=== PATIENT | female | born 1975 | race Caucasian/White ===

== ENCOUNTER 2017-01-10 05:42 | Emergency (ER) | payer OTHER ==
[~2017-01-10] VITALS: Ht 162.5 cm; Wt 74.4 kg
[2017-01-10] MEDS ORDERED: NEURONTIN100 MG PO (05:47)
[2017-01-10] MEDS ORDERED: OSELTAMIVIR PHO75 MG PO (06:48)
[2017-01-10] MEDS ORDERED: TESSALON PERLE100 M1 PO (06:48)
[2017-01-10] MEDS ORDERED: Fioricet 325 MG1 TAB PO (06:48)
== END 2017-01-10 06:57 | disposition home or self-care (01) ==
LOC: ED 05:42
DX: J11.1 Influenza due to unidentified influenza virus with other respiratory manifestations (principal); Z79.899 Other long term (current) drug therapy; Z98.890 Other specified postprocedural states; Z98.51 Tubal ligation status; Z91.040 Latex allergy status; Z88.1 Allergy status to other antibiotic agents

== ENCOUNTER 2017-03-26 15:53 | Emergency (ER) | payer OTHER ==
[~2017-03-26] VITALS: Wt 72.6 kg
[~2017-03-26 15:53] MED LIST: Fioricet 325 MG1 TAB PO; NEURONTIN100 MG PO; OSELTAMIVIR PHO75 MG PO; TESSALON PERLE100 M1 PO
[2017-03-26] MEDS ORDERED: ACETAMINOPHEN/B1 TA1 PO (15:54)
[2017-03-26 16:27] LABS: BASO % 0.7 % (0.0-1.0); EOS # 0.1 10*3/uL (0.0-0.4); HEMATOCRIT 41.6 % (37.0-47.0); HEMOGLOBIN 13.9 g/dl (12.0-16.0); LYMPH # 2.3 10*3/uL (1.3-4.4); LYMPH % 38.2 % (27.0-41.0); MEAN CELL VOLUME 88.1 fl (81.0-99.0); MEAN CORPUSCULAR HGB 29.4 pg (27.0-31.0); MEAN CORPUSCULAR HGB CONC 33.4 g/dl (33.0-37.0); MEAN PLATELET VOLUME 9.6 fl (9.6-12.3); MONO # 0.4 10*3/uL (0.1-1.0); MONO % 5.8 % (3.0-9.0); NEUT # 3.3 10*3/uL (2.3-7.9); NEUT % 54.1 % (47.0-73.0); PLATELET COUNT AUTOMATED 280 10*3/uL (130-400); RED BLOOD COUNT 4.72 10*6/uL (4.10-5.10)
[2017-03-26 16:42] LABS: ALBUMIN 3.6 gm/dl (3.1-4.5); ALKALINE PHOSPHATASE 83 U/L (45-117); BILIRUBIN, TOTAL 0.3 mg/dl (0.2-1.0); BUN 8 mg/dl (7-24); CARBON DIOXIDE 25 mmol/L (21-32); CHLORIDE 107 mmol/L (98-107); EST GLOM FILT AFRICAN AMERICAN > 60 ml/min; GLUCOSE 113 mg/dL (65-99); POTASSIUM 3.1 mmol/L (3.5-5.1); SGOT/AST 13 IU/L (3-35); SGPT/ALT 16 U/L (12-78); SODIUM 141 mmol/L (136-145); TOTAL PROTEIN 7.9 gm/dL (6.4-8.2)
[2017-03-26] MEDS ORDERED: CLINDAMYCIN150 MG PO (16:51)
[2017-03-26] MEDS ORDERED: NAPROSYN500 MG PO (16:53)
[2017-03-26 18:23] LABS: LA>2 REFLEX 2 HR DRAW NOW
== END 2017-03-26 16:56 | disposition home or self-care (01) ==
LOC: ED 15:53
PROVIDERS: Nurse Practitioner Family
DX: L03.115 Cellulitis of right lower limb (principal); R03.0 Elevated blood-pressure reading, without diagnosis of hypertension; Z88.1 Allergy status to other antibiotic agents; Z91.040 Latex allergy status

== ENCOUNTER 2017-09-06 17:13 | Emergency (ER) | payer OTHER ==
[~2017-09-06] VITALS: Ht 162.5 cm; Wt 77.1 kg
[~2017-09-06 17:13] MED LIST changes: +ACETAMINOPHEN/B1 TA1 PO; +CLINDAMYCIN150 MG PO; +NAPROSYN500 MG PO
[2017-09-06] MEDS ORDERED: MEDROL DOSEPAK4 MG PO (18:48)
[2017-09-06] MEDS ORDERED: ZITHROMAX250 MG PO (18:48)
== END 2017-09-06 18:49 | disposition home or self-care (01) ==
LOC: ED 17:13
DX: J40 Bronchitis, not specified as acute or chronic (principal); Z91.040 Latex allergy status; Z88.1 Allergy status to other antibiotic agents; Z79.899 Other long term (current) drug therapy

== ENCOUNTER 2018-07-11 12:02 | Emergency (ER) | payer OTHER ==
[~2018-07-11] VITALS: Ht 162.5 cm; Wt 77.1 kg
[~2018-07-11 12:02] MED LIST changes: +MEDROL DOSEPAK4 MG PO; +ZITHROMAX250 MG PO
[2018-07-11] MEDS ORDERED: TESSALON PERLE100 M1 PO (13:04)
[2018-07-11] MEDS ORDERED: FLONASE ALLERG9.9 ML NAS (13:04)
[2018-07-11] MEDS ORDERED: AUGMENTIN 875875 MG PO (13:04)
[2018-07-11] MEDS ORDERED: Tobrex Ophth S2.5 ML OPH (13:11)
== END 2018-07-11 13:54 | disposition home or self-care (01) ==
LOC: ED 12:02
DX: J01.90 Acute sinusitis, unspecified (principal); H10.9 Unspecified conjunctivitis; Z88.1 Allergy status to other antibiotic agents; Z91.040 Latex allergy status; Z79.899 Other long term (current) drug therapy

== ENCOUNTER 2018-08-24 09:11 | Emergency (ER) | payer OTHER ==
[~2018-08-24] VITALS: Ht 162.5 cm; Wt 77.1 kg
[~2018-08-24 09:11] MED LIST changes: +AUGMENTIN 875875 MG PO; +FLONASE ALLERG9.9 ML NAS; +Tobrex Ophth S2.5 ML OPH
[2018-08-24] MEDS ORDERED: CEPHALEXIN500 M1 PO (09:33)
== END 2018-08-24 09:47 | disposition home or self-care (01) ==
LOC: ED 09:11
DX: H05.222 Edema of left orbit (principal); H57.89 Other specified disorders of eye and adnexa; Z88.1 Allergy status to other antibiotic agents; Z91.040 Latex allergy status; Z79.899 Other long term (current) drug therapy

== ENCOUNTER 2018-12-01 13:10 | Emergency (ER) | payer OTHER ==
[~2018-12-01] VITALS: Ht 162.5 cm; Wt 77.1 kg
[~2018-12-01 13:10] MED LIST changes: +CEPHALEXIN500 M1 PO
[2018-12-01] MEDS ORDERED: NAPROSYN500 MG PO (13:16)
[2019-01-04] MEDS ORDERED: FLONASE ALLERG9.9 ML NAS (10:24)
[2019-01-04] MEDS ORDERED: AMOXICILLIN500 M2 PO (10:24)
== END 2018-12-01 15:00 | disposition home or self-care (01) ==
LOC: ED 13:10
DX: M25.571 Pain in right ankle and joints of right foot (principal); R03.0 Elevated blood-pressure reading, without diagnosis of hypertension; Z88.1 Allergy status to other antibiotic agents; Z91.040 Latex allergy status; Z79.2 Long term (current) use of antibiotics; Z79.899 Other long term (current) drug therapy; X50.1XXA Overexertion from prolonged static or awkward postures, initial encounter; Y93.89 Activity, other specified; Y92.89 Other specified places as the place of occurrence of the external cause; Y99.8 Other external cause status

== ENCOUNTER 2019-02-15 10:12 | Emergency (ER) | payer OTHER ==
[~2019-02-15] VITALS: Ht 162.5 cm; Wt 74.8 kg
[~2019-02-15 10:12] MED LIST changes: +AMOXICILLIN500 M2 PO
[2019-02-15] MEDS ORDERED: AUGMENTIN 875875 MG PO (10:48)
[2019-02-15] MEDS ORDERED: Motrin,Rufen800 MG PO (10:48)
[2019-02-15] MEDS ORDERED: SEPTDS PO (10:48)
== END 2019-02-15 11:20 | disposition home or self-care (01) ==
LOC: ED 10:12
DX: L03.011 Cellulitis of right finger (principal); Z88.1 Allergy status to other antibiotic agents; Z91.040 Latex allergy status; Z79.899 Other long term (current) drug therapy

== ENCOUNTER 2019-07-08 13:25 | Emergency (ER) | payer OTHER ==
[~2019-07-08] VITALS: Ht 152.4 cm; Wt 68.0 kg
[~2019-07-08 13:25] MED LIST changes: +Motrin,Rufen800 MG PO; +SEPTDS PO
[2019-07-08] MEDS ORDERED: CLINDAMYCIN HC300 MG PO (13:59)
== END 2019-07-08 14:14 | disposition home or self-care (01) ==
LOC: ED 13:25
DX: L02.415 Cutaneous abscess of right lower limb (principal); Z88.8 Allergy status to other drugs, medicaments and biological substances; Z88.1 Allergy status to other antibiotic agents; Z79.899 Other long term (current) drug therapy; Z91.040 Latex allergy status

== ENCOUNTER 2020-06-05 22:52 | Emergency (ER) | payer OTHER ==
[~2020-06-05] VITALS: Ht 162.5 cm; Wt 59.9 kg
[~2020-06-05 22:52] MED LIST changes: +CLINDAMYCIN HC300 MG PO
[2020-06-05 23:58] LABS: BASO % 0.3 % (0.0-1.0); EOS % 0.2 % (1.0-4.0); HEMATOCRIT 43.4 % (37.0-47.0); LYMPH # 0.9 10*3/uL (1.3-4.4); MEAN CELL VOLUME 91.2 fl (81.0-99.0); MEAN CORPUSCULAR HGB CONC 32.9 g/dl (33.0-37.0); MEAN PLATELET VOLUME 9.6 fl (9.6-12.3); MONO # 0.7 10*3/uL (0.1-1.0); MONO % 5.9 % (3.0-9.0); NEUT # 9.7 10*3/uL (2.3-7.9); NEUT % 85.3 % (47.0-73.0); PLATELET COUNT AUTOMATED 222 10*3/uL (130-400); RED BLOOD COUNT 4.76 10*6/uL (4.10-5.10); RED CELL DISTRI WIDTH 12.3 % (0-14.5); WHITE BLOOD COUNT 11.3 10*3/uL (4.8-10.8)
[2020-06-06 00:13] LABS: ALBUMIN 3.7 gm/dl (3.1-4.5); ALKALINE PHOSPHATASE 63 U/L (45-117); BUN 10 mg/dl (7-24); CHLORIDE 109 mmol/L (98-107); CREATININE 0.78 mg/dL (0.55-1.02); POTASSIUM 3.7 mmol/L (3.5-5.1); SGOT/AST 7 IU/L (3-35); SGPT/ALT 12 U/L (12-78); SODIUM 139 mmol/L (136-145); TOTAL PROTEIN 7.7 gm/dL (6.4-8.2)
[2020-06-06] MEDS ORDERED: AUGMENTIN 875-875 MG PO (01:19)
== END 2020-06-06 02:30 | disposition home or self-care (01) ==
LOC: ED 22:52
PROVIDERS: Nurse Practitioner Family
DX: K11.20 Sialoadenitis, unspecified (principal); Z88.1 Allergy status to other antibiotic agents; Z91.040 Latex allergy status; Z79.899 Other long term (current) drug therapy

== ENCOUNTER 2022-05-25 01:17 | Emergency (ER) | payer OTHER ==
[~2022-05-25 01:17] MED LIST changes: +AUGMENTIN 875-875 MG PO
[2022-05-25] MEDS ORDERED: METHOCARBAMOL500 M1 PO (02:39)
[2022-05-25] MEDS ORDERED: NAPROXEN250 MG PO (02:39)
== END 2022-05-25 02:52 | disposition home or self-care (01) ==
LOC: ED 01:17
DX: M25.562 Pain in left knee (principal); M25.531 Pain in right wrist; Z88.1 Allergy status to other antibiotic agents; Z91.040 Latex allergy status; Z79.899 Other long term (current) drug therapy; Z79.2 Long term (current) use of antibiotics; Z98.51 Tubal ligation status; V68.5XXA Driver of heavy transport vehicle injured in noncollision transport accident in traffic accident, initial encounter; Y93.89 Activity, other specified; Y92.488 Other paved roadways as the place of occurrence of the external cause; Y99.8 Other external cause status

== ENCOUNTER 2025-06-09 16:49 | Emergency (ER) | payer OTHER ==
[~2025-06-09] VITALS: Ht 162.5 cm; Wt 79.4 kg
[~2025-06-09 16:49] MED LIST changes: +METHOCARBAMOL500 M1 PO; +NAPROXEN250 MG PO
[2025-06-09] MEDS ORDERED: Dexamethasone Sodium Phospha 20 MG/5 ML VIAL IM ONE (17:50)
[2025-06-09] MEDS ORDERED: Acetaminophen/Oxycodone 5 MG/325 MG TABLET PO ONE (17:50)
[2025-06-09] MEDS ORDERED: Ondansetron Hydrochloride 4 MG TAB PO ONE (17:55)
[2025-06-09] MEDS ORDERED: METHOCARBAMOL750 M1 PO (18:57)
[2025-06-09] MEDS ORDERED: PREDNISONE20 M1 PO (18:57)
== END 2025-06-09 19:03 | disposition home or self-care (01) ==
LOC: ED 16:49
DX: S93.401A Sprain of unspecified ligament of right ankle, initial encounter (principal); Z88.1 Allergy status to other antibiotic agents; Z91.040 Latex allergy status; Z79.2 Long term (current) use of antibiotics; Z79.899 Other long term (current) drug therapy; X50.1XXA Overexertion from prolonged static or awkward postures, initial encounter; Y93.89 Activity, other specified; Y92.89 Other specified places as the place of occurrence of the external cause; Y99.8 Other external cause status